=== PATIENT | male | born 1955 | race Caucasian/White ===

== ENCOUNTER 2024-11-10 12:50 | Inpatient (IN) | payer MEDICARE ==
[~2024-11-10 12:50] MED LIST: Sodium Chloride 0.9% 10 ML Syringe FLUSH PRN
[2024-11-10] MEDS: Lactated Ringers 1,000 ML IV ONE (13:11)
[2024-11-10 13:12] LABS: BASOPHILS PERCENT AUTO 0.1 % (0.2-1.2); HEMATOCRIT 28.7 % (40.0-52.0); HEMOGLOBIN 9.6 g/dL (14.0-18.0); IMMATURE GRAN ABSOLUTE AUTO 0.04 x10^3/uL (0.00-0.07); LYMPHOCYTES ABSOLUTE AUTO 0.6 x10^3/uL (1.0-4.8); LYMPHOCYTES PERCENT AUTO 4.5 % (25.0-50.0); MEAN CORPUSCULAR HEMOGLOBIN 28.8 pg (26.0-32.0); MEAN CORPUSCULAR HGB CONC 33.4 g/dL (32.0-36.0); MEAN CORPUSCULAR VOLUME 86.2 fL (78.0-93.0); MONOCYTES ABSOLUTE AUTO 0.4 x10^3/uL (0.0-0.8); MONOCYTES PERCENT AUTO 3.5 % (2.0-11.0); NEUTROPHILS ABSOLUTE AUTO 11.5 x10^3/uL (1.8-7.7); NEUTROPHILS PERCENT AUTO 91.6 % (50.0-80.0); PLATELET COUNT,PLT 300 x10^3/uL (130-400); RED BLOOD CELL COUNT 3.33 x10^6/uL (4.5-6.0); WHITE BLOOD CELL COUNT,WBC 12.6 x10^3/uL (4.0-10.0)
[2024-11-10 13:28] LABS: INR 1.1 (0.9-1.1); PROTHROMBIN TIME 10.9 SEC (8.9-11.5); PTT,PARTIAL THROMBOPLSTIN TIME 29.5 SEC (21.9-33.8)
[2024-11-10 13:37] LABS: A/G RATIO 0.25; ALANINE AMINOTRANSFERASE,ALT 8 U/L (16-63); ALBUMIN 1.9 g/dL (3.4-5.0); ALKALINE PHOSPHATASE 77 U/L (46-116); ASPARTATE AMNIOTRANSFERASE,AST 14 U/L (15-37); BILIRUBIN TOTAL 0.3 mg/dL (0.2-1.0); BLOOD UREA NITROGEN,BUN 45 mg/dL (7-18); C-REACTIVE PROTEIN 21.82 mg/dL (<=0.50); CALCIUM 9.8 mg/dL (8.5-10.1); CARBON DIOXIDE,CO2 30 mmol/L (21-32); CHLORIDE,CL 98 mmol/L (98-107); CREATININE 1.5 mg/dL (0.70-1.30); GLUCOSE RANDOM 112 mg/dL (70-99); MAGNESIUM 1.8 mg/dL (1.8-2.4); POTASSIUM,K 4.8 mmol/L (3.5-5.1); PROTEIN TOTAL,TP 9.5 g/dL (6.4-8.2); SODIUM,NA 136 mmol/L (136-145)
[2024-11-10 13:38] LABS: ANION GAP 12.8 mmol/L (5-15); ESTIMATED GFR 50 mL/min (>=60)
[2024-11-10 13:48] LABS: APPEARANCE,URINE CLOUDY (CLEAR); BILIRUBIN,URINE NEGATIVE (NEGATIVE); COLOR,URINE YELLOW (YELLOW); GLUCOSE,URINE NEGATIVE (NEGATIVE); KETONES,URINE TRACE mg/dL (NEGATIVE); LEUKOCYTE ESTERASE,URINE MODERATE (NEGATIVE); NITRITE,URINE NEGATIVE (NEGATIVE); OCCULT BLOOD,URINE TRACE-INTACT (NEGATIVE); PH,URINE 7.5 (5.0-8.0); PROTEIN,URINE 100 mg/dL (NEGATIVE); UROBILINOGEN,URINE 0.2 EU/dL (0.2)
[2024-11-10 13:51] LABS: WBC,URINE 40-50 /HPF (NOT SEEN)
[2024-11-10 13:52] LABS: AMORPHOUS SEDIMENT,URINE MODERATE; BACTERIA,URINE MANY /HPF (NOT SEEN); MUCUS,URINE FEW /LPF (NOT SEEN); SQUAMOUS EPITHELIAL CELLS,UR NOT SEEN /HPF (NOT SEEN)
[2024-11-10] MEDS: cefTRIAXone 2 GM Vial IVPUSH ONE (14:04)
[2024-11-10] MEDS: Azithromycin 500 MG in Sodium Chloride 0.9% 250 ML IV ONE (14:18)
[2024-11-10] MEDS: Sodium Chloride 0.9% 1,000 ML IV ONE (16:19)
[2024-11-10] MEDS ORDERED: Sodium Chloride 0.9% 1,000 ML IV SCH (16:30)
[2024-11-10] MEDS ORDERED: Bacitracin Oint 1 GM U/D Packet TOP PRN (16:55)
[2024-11-10] MEDS ORDERED: Bisacodyl 10 MG Supp RECTAL PRN (16:55)
[2024-11-10] MEDS ORDERED: Acetaminophen/HYDROcodone 325-5 MG Tab PO PRN (16:55)
[2024-11-10] MEDS ORDERED: Bisacodyl 5 MG Tab PO PRN (16:55)
[2024-11-10] MEDS: Sodium Chloride 0.9% 1,000 ML IV SCH (17:15)
[2024-11-10] MEDS: busPIRone 5 MG Tab PO SCH (21:20)
[2024-11-10] MEDS: Sennosides/Docusate Sodium 50-8.6 MG Tab PO SCH (21:21)
[2024-11-10] MEDS: Divalproex Sodium Delayed-Release 250 MG Tab.CR PO SCH (21:21)
[2024-11-10] MEDS: Carbidopa/Levodopa 25-100 MG Tab PO SCH (21:21)
[2024-11-10] MEDS: Acetaminophen/HYDROcodone 325-5 MG Tab PO SCH (21:21)
[2024-11-11 07:22] LABS: HEMATOCRIT 24.2 % (40.0-52.0); HEMOGLOBIN 7.9 g/dL (14.0-18.0); MEAN CORPUSCULAR HEMOGLOBIN 28.3 pg (26.0-32.0); MEAN CORPUSCULAR HGB CONC 32.6 g/dL (32.0-36.0); MEAN CORPUSCULAR VOLUME 86.7 fL (78.0-93.0); RED BLOOD CELL COUNT 2.79 x10^6/uL (4.5-6.0); WHITE BLOOD CELL COUNT,WBC 5.6 x10^3/uL (4.0-10.0)
[2024-11-11 07:24] LABS: CALCIUM 8.4 mg/dL (8.5-10.1); CREATININE 0.9 mg/dL (0.70-1.30); EST CRCL DRUG DOSING (CG) 59.17 mL/min; POTASSIUM,K 3.8 mmol/L (3.5-5.1)
[2024-11-11 07:26] LABS: ANION GAP 12.8 mmol/L (5-15)
[2024-11-11] MEDS: Mineral Oil/Petrolatum,White Crm 454 GM Jar TOP SCH ×2 (09:13→09:14)
[2024-11-11] MEDS: Polyethylene Glycol 3350 Powder 17 GM Packet PO SCH (09:14)
[2024-11-11] MEDS: Azithromycin 500 MG in Sodium Chloride 0.9% 250 ML IV SCH (09:25)
[2024-11-11] MEDS: cefTRIAXone 2 GM Vial IVPUSH SCH (09:28)
[2024-11-11] MEDS: Enoxaparin 40 MG/0.4 ML Syringe SUBCUT SCH (11:51)
[2024-11-11] MEDS: CHLORPROMAZINE 100 MG PO SCH ×5 (11:54→23:28)
[2024-11-12 08:50] LABS: CALCIUM 8.4 mg/dL (8.5-10.1); CREATININE 0.9 mg/dL (0.70-1.30); EST CRCL DRUG DOSING (CG) 61.88 mL/min; POTASSIUM,K 3.3 mmol/L (3.5-5.1)
[2024-11-12 08:54] LABS: ANION GAP 11.3 mmol/L (5-15)
[2024-11-12] MEDS: Take Home: Azithromycin 250 MG, 2 Tab Pack PO ONE (11:08)
[2024-11-13 08:07] LABS: ANION GAP 14.5 mmol/L (5-15); CALCIUM 8.4 mg/dL (8.5-10.1); CREATININE 0.8 mg/dL (0.70-1.30); EST CRCL DRUG DOSING (CG) 67.82 mL/min; POTASSIUM,K 3.5 mmol/L (3.5-5.1)
[2024-11-17] MEDS ORDERED: MENTHOL TOP SCH (10:00)
[2024-11-17] MEDS ORDERED: SELENIUM SULFIDE TOP SCH (10:00)
== END 2024-11-13 10:30 | DRG 698 ==
LOC: VM.ED 12:50 → VM.MS 14:34
PROVIDERS: ADMIT Family Medicine; ATTEND Family Medicine
DX: T83.518A Infection and inflammatory reaction due to other urinary catheter, initial encounter (principal); J18.9 Pneumonia, unspecified organism; E87.20 Acidosis, unspecified; N39.0 Urinary tract infection, site not specified; N17.9 Acute kidney failure, unspecified; G20.A1 Parkinson's disease without dyskinesia, without mention of fluctuations; Y73.2 Prosthetic and other implants, materials and accessory gastroenterology and urology devices associated with adverse incidents; N31.9 Neuromuscular dysfunction of bladder, unspecified; G40.909 Epilepsy, unspecified, not intractable, without status epilepticus; Z66 Do not resuscitate; B96.29 Other Escherichia coli [E. coli] as the cause of diseases classified elsewhere; Z86.16 Personal history of COVID-19; Z88.1 Allergy status to other antibiotic agents; Y92.89 Other specified places as the place of occurrence of the external cause
CPT/HCPCS: 36415; 71045; 80048; 80053; 81001; 83605; 83735; 84484; 85025; 85027; 85610; 85730; 86140; 87040; 87070; 87086; 87088; 87186; 96361; 96374; 99284; 99285-25; A9270-GY; J0456; J0696; J1650; J7030; J7050; J7120

== ENCOUNTER 2024-11-16 14:53 | Inpatient (IN) | payer MEDICARE, MEDICAID ==
[2024-11-16] MEDS: Sodium Chloride 0.9% 10 ML Syringe FLUSH PRN (15:30)
[2024-11-16 15:31] LABS: BASOPHILS PERCENT AUTO 0.5 % (0.2-1.2); EOSINOPHILS PERCENT AUTO 0.9 % (0.0-4.0); IMMATURE GRAN ABSOLUTE AUTO 0.02 x10^3/uL (0.00-0.07); LYMPHOCYTES ABSOLUTE AUTO 0.5 x10^3/uL (1.0-4.8); LYMPHOCYTES PERCENT AUTO 24.5 % (25.0-50.0); MEAN CORPUSCULAR HEMOGLOBIN 28.2 pg (26.0-32.0); MONOCYTES ABSOLUTE AUTO 0.3 x10^3/uL (0.0-0.8); NEUTROPHILS ABSOLUTE AUTO 1.3 x10^3/uL (1.8-7.7); NEUTROPHILS PERCENT AUTO 60.2 % (50.0-80.0); PLATELET COUNT,PLT 197 x10^3/uL (130-400); RED BLOOD CELL COUNT 2.84 x10^6/uL (4.5-6.0)
[2024-11-16 15:38] LABS: HCO3 VENOUS,POC 32 mmol/L (22-29); O2 SATURATION VENOUS,POC 57 %; PCO2 VENOUS,POC 53 mmHg (41-51); PH VENOUS,POC 7.39 pH (7.32-7.43); PO2 VENOUS,POC 31 mmHg
[2024-11-16 15:42] LABS: WHITE BLOOD CELL COUNT,WBC 2.2 x10^3/uL (4.0-10.0)
[2024-11-16 15:51] LABS: A/G RATIO 0.24; ALANINE AMINOTRANSFERASE,ALT 8 U/L (16-63); ALBUMIN 1.6 g/dL (3.4-5.0); ALKALINE PHOSPHATASE 74 U/L (46-116); ASPARTATE AMNIOTRANSFERASE,AST 39 U/L (15-37); BILIRUBIN TOTAL 0.2 mg/dL (0.2-1.0); BLOOD UREA NITROGEN,BUN 16 mg/dL (7-18); C-REACTIVE PROTEIN 13.05 mg/dL (<=0.50); CALCIUM 8.8 mg/dL (8.5-10.1); CARBON DIOXIDE,CO2 32 mmol/L (21-32); CHLORIDE,CL 101 mmol/L (98-107); CREATININE 1.4 mg/dL (0.70-1.30); GLUCOSE RANDOM 101 mg/dL (70-99); MAGNESIUM 1.7 mg/dL (1.8-2.4); POTASSIUM,K 3.5 mmol/L (3.5-5.1); PROTEIN TOTAL,TP 8.2 g/dL (6.4-8.2); SODIUM,NA 138 mmol/L (136-145)
[2024-11-16 15:53] LABS: ANION GAP 8.5 mmol/L (5-15); ESTIMATED GFR 54 mL/min (>=60)
[2024-11-16 16:00] LABS: APPEARANCE,URINE SLIGHTLY CLOUDY (CLEAR); BILIRUBIN,URINE SMALL (NEGATIVE); COLOR,URINE YELLOW (YELLOW); GLUCOSE,URINE NEGATIVE (NEGATIVE); KETONES,URINE 15 mg/dL (NEGATIVE); LEUKOCYTE ESTERASE,URINE TRACE (NEGATIVE); NITRITE,URINE POSITIVE (NEGATIVE); OCCULT BLOOD,URINE TRACE-LYSED (NEGATIVE); PH,URINE 6.5 (5.0-8.0); PROTEIN,URINE 100 mg/dL (NEGATIVE); UROBILINOGEN,URINE 0.2 EU/dL (0.2)
[2024-11-16] MEDS: cefTRIAXone 1 GM Vial IVPUSH ONE (16:02)
[2024-11-16 16:05] LABS: BACTERIA,URINE MANY /HPF (NOT SEEN); HYALINE CASTS,URINE FEW; MUCUS,URINE FEW /LPF (NOT SEEN); RBC,URINE NOT SEEN /HPF (NOT SEEN); SQUAMOUS EPITHELIAL CELLS,UR FEW /HPF (NOT SEEN)
[2024-11-16] MEDS: Lactated Ringers 1,000 ML IV ONE (16:05)
[2024-11-16] MEDS: Azithromycin 500 MG in Sodium Chloride 0.9% 250 ML IV ONE (16:15)
[2024-11-16] MEDS: Lactated Ringers 1,000 ML IV SCH (19:00)
[2024-11-16] MEDS: Piperacillin/Tazobactam 3.375 GM in Sodium Chloride 0.9% 100 ML IV SCH (21:23)
[2024-11-16] MEDS: Sennosides/Docusate Sodium 50-8.6 MG Tab PO SCH (22:00)
[2024-11-16] MEDS: busPIRone 5 MG Tab PO SCH (22:00)
[2024-11-16] MEDS: Acetaminophen/HYDROcodone 325-5 MG Tab PO SCH (22:00)
[2024-11-16] MEDS: Carbidopa/Levodopa 25-100 MG Tab PO SCH (22:00)
[2024-11-16] MEDS: Albuterol/Ipratropium 3.0-0.5 MG/3 ML Neb Soln NEB SCH (22:47)
[2024-11-17 07:11] LABS: BASOPHILS PERCENT AUTO 0.2 % (0.2-1.2); EOSINOPHILS PERCENT AUTO 0.3 % (0.0-4.0); IMMATURE GRAN ABSOLUTE AUTO 0.05 x10^3/uL (0.00-0.07); LYMPHOCYTES ABSOLUTE AUTO 0.5 x10^3/uL (1.0-4.8); LYMPHOCYTES PERCENT AUTO 8.7 % (25.0-50.0); MEAN CORPUSCULAR HEMOGLOBIN 27.8 pg (26.0-32.0); MEAN CORPUSCULAR VOLUME 86.8 fL (78.0-93.0); MONOCYTES ABSOLUTE AUTO 0.4 x10^3/uL (0.0-0.8); MONOCYTES PERCENT AUTO 6.4 % (2.0-11.0); NEUTROPHILS ABSOLUTE AUTO 4.8 x10^3/uL (1.8-7.7); NEUTROPHILS PERCENT AUTO 83.5 % (50.0-80.0); PLATELET COUNT,PLT 207 x10^3/uL (130-400); RED BLOOD CELL COUNT 2.88 x10^6/uL (4.5-6.0); WHITE BLOOD CELL COUNT,WBC 5.8 x10^3/uL (4.0-10.0)
[2024-11-17 07:24] LABS: A/G RATIO 0.24; ALBUMIN 1.5 g/dL (3.4-5.0); BILIRUBIN TOTAL 0.2 mg/dL (0.2-1.0); CALCIUM 8.5 mg/dL (8.5-10.1); EST CRCL DRUG DOSING (CG) 54.52 mL/min; POTASSIUM,K 3.6 mmol/L (3.5-5.1); PROTEIN TOTAL,TP 7.8 g/dL (6.4-8.2)
[2024-11-17 07:34] LABS: ANION GAP 9.6 mmol/L (5-15)
[2024-11-17] MEDS: Polyethylene Glycol 3350 Powder 17 GM Packet PO SCH (08:22)
[2024-11-17] MEDS: Divalproex Sodium Delayed-Release 250 MG Tab.CR PO SCH (08:23)
[2024-11-17] MEDS: Azithromycin 500 MG in Sodium Chloride 0.9% 250 ML IV SCH (08:24)
[2024-11-17] MEDS: MINERAL OIL TOP SCH ×2 (08:39→11:21)
[2024-11-17] MEDS: [UNRECOGNIZED DRUG - OTHER] TOP SCH ×2 (08:39→11:21)
[2024-11-17] MEDS: Lactated Ringers 1,000 ML IV ONE (10:00)
[2024-11-17] MEDS: CHLORPROMAZINE 100 MG PO SCH ×2 (12:19→20:23)
[2024-11-17] MEDS: Morphine 2 MG/ML SYRINGE IVPUSH ONE (13:08)
[2024-11-17] MEDS: Morphine 2 MG/ML SYRINGE IVPUSH PRN ×2 (16:15→20:29)
[2024-11-17] MEDS: Piperacillin/Tazobactam 4.5 GM Vial ONE (19:27)
== END 2024-11-17 21:20 | disposition expired | DRG 193 ==
LOC: VM.ED 14:53 → VM.MS 16:09
PROVIDERS: ADMIT Nurse Practitioner Family; ATTEND Family Medicine
PROC: 5A0935A Assistance with Respiratory Ventilation, Less than 24 Consecutive Hours, High Flow/Velocity Cannula (ICD-10-PCS; principal; 2024-11-17)
DX: J18.9 Pneumonia, unspecified organism (principal); J96.01 Acute respiratory failure with hypoxia; N30.00 Acute cystitis without hematuria; M86.28 Subacute osteomyelitis, other site; N17.9 Acute kidney failure, unspecified; T83.510A Infection and inflammatory reaction due to cystostomy catheter, initial encounter; E87.20 Acidosis, unspecified; Z66 Do not resuscitate; G20.A1 Parkinson's disease without dyskinesia, without mention of fluctuations; L98.499 Non-pressure chronic ulcer of skin of other sites with unspecified severity; G40.909 Epilepsy, unspecified, not intractable, without status epilepticus; E86.0 Dehydration; F20.9 Schizophrenia, unspecified; I95.9 Hypotension, unspecified; Z88.1 Allergy status to other antibiotic agents; Z79.899 Other long term (current) drug therapy; Z86.73 Personal history of transient ischemic attack (TIA), and cerebral infarction without residual deficits; Y84.6 Urinary catheterization as the cause of abnormal reaction of the patient, or of later complication, without mention of misadventure at the time of the procedure
CPT/HCPCS: 36415; 71045; 80053; 81001; 82803; 83605; 83735; 85025; 86140; 87040; 87070; 87086; 87088; 87186; 94640; 94760; 96374; 99223; 99238; 99238-GT; 99284; 99285-25; A9270-GY; J0456; J0696; J2270; J2543; J7050; J7120; J7620-GY; Q3014